=== PATIENT | male | born 1960 | race Caucasian/White ===

== ENCOUNTER 2016-11-04 06:29 | Inpatient (IN) | payer BC ==
[~2016-11-04] VITALS: Ht 177.8 cm; Wt 95.3 kg
[2016-11-04 07:22] LABS: HEMOGLOBIN 13.4 gm/dl (14.0-17.5); RED BLOOD COUNT 4.4 M/UL (4.20-5.50); WHITE BLOOD COUNT 5.8 K/UL (4.5-11.0)
[2016-11-04 07:27] LABS: BUN/CREATININE RATIO 21 (0-10)
[2016-11-04] MEDS ORDERED: LISINOPRIL5 MG PO (10:03)
[2016-11-04] MEDS ORDERED: NOVOLOG100 UNIT/1 SQ (10:04)
[2016-11-04] MEDS ORDERED: LEVEMIR100 UNIT/1 SQ (10:04)
[2016-11-04] MEDS ORDERED: FLOMAX 0.4 MG0.4 MG PO (10:05)
[2016-11-04] MEDS ORDERED: PRILOSEC OTC20 MG PO (11:39)
[2016-11-04] MEDS ORDERED: GLUCOPHAGE1000 MG PO (11:39)
[2016-11-04 12:56] LABS: BUN/CREATININE RATIO 19 (0-10)
[2016-11-05 04:44] LABS: HEMOGLOBIN 12.1 gm/dl (14.0-17.5); RED BLOOD COUNT 4.01 M/UL (4.20-5.50); WHITE BLOOD COUNT 7.8 K/UL (4.5-11.0)
[2016-11-05 05:11] LABS: BUN/CREATININE RATIO 16 (0-10)
[2016-11-06 06:53] LABS: BUN/CREATININE RATIO 16 (0-10)
[2016-11-06] MEDS ORDERED: LIPITOR TAB 2020 MG PO (11:36)
[2016-11-06] MEDS ORDERED: ASPIR 8181 MG PO (11:36)
[2016-11-06] MEDS ORDERED: LOPRESSOR 25 MG25 MG PO (11:40)
[2016-11-06] MEDS ORDERED: BRILINTA 90 MG90 MG PO (11:42)
[2016-11-06] MEDS ORDERED: NITROSTAT 0.40.4 MG SL (11:45)
== END 2016-11-06 12:30 | disposition home or self-care (01) | DRG 247 ==
LOC: ER1 06:29 → PROG CARE 08:00 → ZEROF 08:00 → PROG CARE 09:38
PROVIDERS: Family Medicine; ADMIT Hospitalist
PROC: 027034Z Dilation of Coronary Artery, One Artery with Drug-eluting Intraluminal Device, Percutaneous Approach (ICD-10-PCS; principal; 2016-11-05)
PROC: 4A023N7 Measurement of Cardiac Sampling and Pressure, Left Heart, Percutaneous Approach (ICD-10-PCS; 2016-11-05)
PROC: B2111ZZ Fluoroscopy of Multiple Coronary Arteries using Low Osmolar Contrast (ICD-10-PCS; 2016-11-05)
DX: I21.4 Non-ST elevation (NSTEMI) myocardial infarction (principal); E11.9 Type 2 diabetes mellitus without complications; D69.6 Thrombocytopenia, unspecified; I10 Essential (primary) hypertension; K74.60 Unspecified cirrhosis of liver; K75.4 Autoimmune hepatitis; N40.0 Benign prostatic hyperplasia without lower urinary tract symptoms; K21.9 Gastro-esophageal reflux disease without esophagitis; Z79.82 Long term (current) use of aspirin; Z88.5 Allergy status to narcotic agent; Z79.4 Long term (current) use of insulin; Z83.3 Family history of diabetes mellitus; Z80.3 Family history of malignant neoplasm of breast; Z82.49 Family history of ischemic heart disease and other diseases of the circulatory system
CPT/HCPCS: ECHO; 36415; 71010; 80048; 80053; 80061; 82550; 82553; 82962; 83036; 83735; 83874; 84484; 85025; 85347; 85379; 85610; 85730; 93005; 93306; 96374; 96375; 99285; C1725; C1769; C1874; C1887; C9600; J0583; J1644; J2250; J2405; J2550; J3010; J7030; J7050; Q9963

== ENCOUNTER → 2017-02-20 | Outpatient (CLI) | payer BC ==
[~2017-02-20] MED LIST: ASPIR 8181 MG PO; BRILINTA 90 MG90 MG PO; FLOMAX 0.4 MG0.4 MG PO; GLUCOPHAGE1000 MG PO; LEVEMIR100 UNIT/1 SQ; LIPITOR TAB 2020 MG PO; LISINOPRIL5 MG PO; LOPRESSOR 25 MG25 MG PO; NITROSTAT 0.40.4 MG SL; NOVOLOG100 UNIT/1 SQ; PRILOSEC OTC20 MG PO
[2017-02-20 11:19] LABS: BUN/CREATININE RATIO 21 (0-10)
== END ==
LOC: LAB 10:25
PROVIDERS: Internal Medicine Cardiovascular Disease
DX: I25.2 Old myocardial infarction (principal); R74.0 Nonspecific elevation of levels of transaminase and lactic acid dehydrogenase [LDH]; R94.5 Abnormal results of liver function studies
CPT/HCPCS: 36415; 80053; 80061

== ENCOUNTER → 2020-11-26 | Outpatient (CLI) | payer BC, OTHER ==
[2020-11-26 10:07] LABS: HEMOGLOBIN 12.7 gm/dl (14.0-17.5); RED BLOOD COUNT 4.04 M/UL (4.20-5.50); WHITE BLOOD COUNT 3.3 K/UL (4.5-11.0)
[2020-11-26 10:31] LABS: BUN/CREATININE RATIO 18 (0-10)
[2020-11-27 07:09] LABS: CREATININE, URINE 146.4 mg/dL (Not Estab.)
== END ==
LOC: LAB 09:28
PROVIDERS: Family Medicine
DX: E11.9 Type 2 diabetes mellitus without complications (principal); E78.5 Hyperlipidemia, unspecified; I10 Essential (primary) hypertension; R39.12 Poor urinary stream
CPT/HCPCS: 36415; 80053; 80061; 82043; 82570; 83036; 84443; 85025; G0103

== ENCOUNTER 2021-04-12 10:57 | Inpatient (IN) | payer BC ==
[~2021-04-12] VITALS: Ht 175.3 cm; Wt 90.7 kg
[~2021-04-12 10:57] MED LIST changes: -ASPIR 8181 MG PO; -GLUCOPHAGE1000 MG PO; +LISINOPRIL10 MG PO; -LISINOPRIL5 MG PO; -NITROSTAT 0.40.4 MG SL; -PRILOSEC OTC20 MG PO
[2021-04-12] MEDS ORDERED: ASPIR-TRIN325 MG PO (11:36)
[2021-04-12 11:39] LABS: HEMOGLOBIN 16.4 gm/dl (14.0-17.5); RED BLOOD COUNT 5.12 M/UL (4.20-5.50); WHITE BLOOD COUNT 8.7 K/UL (4.5-11.0)
[2021-04-12] MEDS ORDERED: GLUCOPHAGE 500500 MG PO (11:39)
[2021-04-12] MEDS ORDERED: OMEPRAZOLE20 MG PO (11:39)
[2021-04-12] MEDS ORDERED: NITROSTAT 0.40.4 MG SL (11:45)
[2021-04-12 11:59] LABS: BUN/CREATININE RATIO 18 (0-10)
[2021-04-12] MEDS ORDERED: HUMALOG100 UNIT/3 SQ (15:17)
[2021-04-12] MEDS ORDERED: LANTUS SOL100 UNIT/1 SQ (15:18)
[2021-04-12] MEDS ORDERED: MUCINEX600 MG PO (15:22)
[2021-04-12] MEDS ORDERED: VICKS NYQUIL C354 M1 PO (15:28)
[2021-04-12] MEDS ORDERED: PULMICORT FLEX90 MCG INH (15:31)
[2021-04-12] MEDS ORDERED: FLUVOXAMINE MAL50 MG PO (15:33)
[2021-04-12] MEDS ORDERED: IVERMECTIN3 MG PO (15:40)
[2021-04-13 05:53] LABS: WHITE BLOOD COUNT 8.3 K/UL (4.5-11.0)
[2021-04-13 05:54] LABS: HEMOGLOBIN 14.3 gm/dl (14.0-17.5); RED BLOOD COUNT 4.46 M/UL (4.20-5.50)
[2021-04-13 06:16] LABS: BUN/CREATININE RATIO 27 (0-10)
[2021-04-14 05:47] LABS: HEMOGLOBIN 14.3 gm/dl (14.0-17.5); RED BLOOD COUNT 4.4 M/UL (4.20-5.50); WHITE BLOOD COUNT 9.8 K/UL (4.5-11.0)
[2021-04-14 06:38] LABS: BUN/CREATININE RATIO 39 (0-10)
[2021-04-15 06:41] LABS: HEMOGLOBIN 15.2 gm/dl (14.0-17.5); RED BLOOD COUNT 4.74 M/UL (4.20-5.50)
[2021-04-15 07:23] LABS: BUN/CREATININE RATIO 43 (0-10)
[2021-04-16 06:52] LABS: HEMOGLOBIN 14.7 gm/dl (14.0-17.5); RED BLOOD COUNT 4.65 M/UL (4.20-5.50); WHITE BLOOD COUNT 12.6 K/UL (4.5-11.0)
[2021-04-16 07:23] LABS: BUN/CREATININE RATIO 41 (0-10)
[2021-04-17 04:43] LABS: ADENOVIRUS F 40/41 Not Detected (Negative); ASTROVIRUS Not Detected (Negative); CAMPYLOBACTER Not Detected (Negative); CLOSTRIDIUM DIFFICILE TOX A/B Not Detected (Negative); CRYPTOSPORIDIUM Not Detected (Negative); E.COLI 0157 Not Detected (Negative); ENTAMOEBA HISTOLYTICA Not Detected (Negative); ENTEROAGGREGATIVE E.COLI (EAEC Not Detected (Negative); ENTEROPATHOGENIC E.COLI (EPEC) Not Detected (Negative); ENTEROTOXIGENIC E.COLI (ETEC) Not Detected (Negative); GIARDIA LAMBLIA Not Detected (Negative); NOROVIRUS GI/GII Not Detected (Negative); PLESIOMONAS SHIGELLOIDES Not Detected (Negative); ROTOVIRUS A Not Detected (Negative); SALMONELLA Not Detected (Negative); SAPOVIRUS Not Detected (Negative); SHIG/ENTEROINVAS.ECOLI (EIEC) Not Detected (Negative); SHIGA-LIK TOX.PRO.E.COLI (STEC Not Detected (Negative); VIBRIO Not Detected (Negative); VIBRIO CHOLERAE Not Detected (Negative); YERSINIA ENTEROCOLITICA Not Detected (Negative)
[2021-04-17 06:50] LABS: HEMOGLOBIN 15.6 gm/dl (14.0-17.5); RED BLOOD COUNT 4.87 M/UL (4.20-5.50)
[2021-04-17 06:52] LABS: WHITE BLOOD COUNT 17.2 K/UL (4.5-11.0)
[2021-04-17 07:52] LABS: BUN/CREATININE RATIO 47 (0-10)
--- NOTE | 2021-04-17 13:20 | NUR ---
04/17/21 1321 ROOM AIR SATURATION 85% ON ROOM AIR
[2021-04-18 07:46] LABS: HEMOGLOBIN 16.6 gm/dl (14.0-17.5)
[2021-04-18 07:47] LABS: RED BLOOD COUNT 5.41 M/UL (4.20-5.50)
[2021-04-18 08:10] LABS: BUN/CREATININE RATIO 48 (0-10)
[2021-04-19 06:24] LABS: HEMOGLOBIN 16.9 gm/dl (14.0-17.5); RED BLOOD COUNT 5.26 M/UL (4.20-5.50); WHITE BLOOD COUNT 14.5 K/UL (4.5-11.0)
[2021-04-19 06:54] LABS: BUN/CREATININE RATIO 47 (0-10)
[2021-04-20 09:05] LABS: HEMOGLOBIN 17.1 gm/dl (14.0-17.5); RED BLOOD COUNT 5.3 M/UL (4.20-5.50); WHITE BLOOD COUNT 12.7 K/UL (4.5-11.0)
[2021-04-20 09:26] LABS: BUN/CREATININE RATIO 52 (0-10)
[2021-04-21 07:22] LABS: HEMOGLOBIN 15.8 gm/dl (14.0-17.5); RED BLOOD COUNT 5.19 M/UL (4.20-5.50); WHITE BLOOD COUNT 13.3 K/UL (4.5-11.0)
[2021-04-21 07:56] LABS: BUN/CREATININE RATIO 50 (0-10)
[2021-04-21] MEDS ORDERED: ELIQUIS 5 MG TAB5 MG PO (10:37)
--- NOTE | 2021-04-21 11:44 | NUR ---
CALLED [facility] TO GIVE REPORT ON THIS PATIENT. TALKED TO ABIMBOLA, SHE TOOK MY NUMBER AND SAID THE NURSE WOULD CALL BACK WITH REPORT LATER
== END 2021-04-21 11:15 | disposition home health service (06) | DRG 871 ==
LOC: ER1 10:57 → CDU 13:35 → PROG CARE 13:35
PROVIDERS: Emergency Medicine; Internal Medicine; Physician Assistant Medical; ADMIT Internal Medicine
PROC: 5A09457 Assistance with Respiratory Ventilation, 24-96 Consecutive Hours, Continuous Positive Airway Pressure (ICD-10-PCS; principal; 2021-04-12)
PROC: 8E0ZXY6 Isolation (ICD-10-PCS; 2021-04-12)
PROC: 3E0333Z Introduction of Anti-inflammatory into Peripheral Vein, Percutaneous Approach (ICD-10-PCS; 2021-04-12)
PROC: XW033E5 Introduction of Remdesivir Anti-infective into Peripheral Vein, Percutaneous Approach, New Technology Group 5 (ICD-10-PCS; 2021-04-12)
PROC: XW033G5 Introduction of Sarilumab into Peripheral Vein, Percutaneous Approach, New Technology Group 5 (ICD-10-PCS; 2021-04-13)
DX: A41.89 Other specified sepsis (principal); U07.1 COVID-19; J12.82 Pneumonia due to coronavirus disease 2019; J96.01 Acute respiratory failure with hypoxia; J15.9 Unspecified bacterial pneumonia; E87.2 Acidosis; R65.20 Severe sepsis without septic shock; D69.6 Thrombocytopenia, unspecified; E80.6 Other disorders of bilirubin metabolism; E83.42 Hypomagnesemia; E78.5 Hyperlipidemia, unspecified; I25.10 Atherosclerotic heart disease of native coronary artery without angina pectoris; E11.9 Type 2 diabetes mellitus without complications; I10 Essential (primary) hypertension; I25.2 Old myocardial infarction; Z79.82 Long term (current) use of aspirin; Z79.899 Other long term (current) drug therapy; Z82.49 Family history of ischemic heart disease and other diseases of the circulatory system; Z83.3 Family history of diabetes mellitus; Z79.52 Long term (current) use of systemic steroids; Z79.84 Long term (current) use of oral hypoglycemic drugs
CPT/HCPCS: 36415; 36600; 71045; 80048; 80053; 82550; 82553; 82803; 82962; 83605; 83735; 83874; 83880; 84484; 85025; 85027; 85379; 86140; 87040; 87507; 93005; 94640; 94660; 94760; 96374; 96375; 97110; 97116-GP-CQ; 97162; 97166; 97530-GP-CQ; 97535; 99285; J0456; J0696; J1100; J1205; J1650; J1940; J2185; J7030; Q9967; U0002